=== PATIENT | female | born 1970 | race Caucasian/White ===

== ENCOUNTER 2017-01-21 20:21 | Emergency (ER) | payer MEDICARE, MEDICAID ==
[2017-01-21] MEDS ORDERED: KETOROLAC TROMETHAMINE 60 MG/2 ML VIAL IM ONE ×2 (21:09→21:32)
[2017-01-21] MEDS ORDERED: ASPIRIN 81 MG TAB.CHEW PO ONE (21:11)
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
[2017-01-21] MEDS ORDERED: ASPIRIN 81 MG TAB.CHEW ONE (21:32)
[2017-01-21 21:42] LABS: Hematocrit 33.4 % (37.0-47.0); Hemoglobin 11.2 gm/dL (12.5-16.0); Mean Cell Volume 81.9 fl (78-100); Mean Corpuscular Hemoglobin 27.5 pg (27-31); Mean Corpuscular Hgb Conc 33.5 g/dl (32-36); Mean Platelet Volume 10.8 fl (6.0-9.5); Neutrophil # 7.6 K/mm3 (1.3-6.0); Neutrophil % 68.2 % (42-75.0); Platelet Count 171 K/mm3 (150-450); Red Blood Count 4.08 M/mm3 (4.2-5.4); Red Cell Distribution Width 13.2 % (11.5-14.0); White Blood Count 11.2 K/mm3 (4.0-10.5)
[2017-01-21 21:48] LABS: Prothrombin Time (Patient) 9.8 Seconds (9.0-11.0)
[2017-01-21 21:51] LABS: INR 0.98 INR (0.90-1.10); Partial Thrombolplastin Time 27.3 Seconds (24-32)
[2017-01-21 21:57] LABS: ALT 21 U/L (19-67); AST 14 U/L (0-48); Albumin * 3.5 gm/dl (3.4-5.0); Alkaline Phosphatase * 104 U/L (50-170); Anion Gap 9.3 mmol/L (6.8-13.8); BUN/Creatinine Ratio 18.2 (9.0-21.6); Bilirubin, Total 0.3 mg/dL (0.0-1.1); Blood Urea Nitrogen 12 mg/dL (3-23); Ca. Corrected For Albumin 9.1 mg/dL (8.4-10.2); Chloride 102 mmol/L (97-106); Glucose * 221 mg/dL (70-110); Potassium 3.3 mmol/L (3.4-4.6); Sodium 138 mmol/L (132-142); Total Protein 7.3 gm/dL (6.2-8.2); Troponin I Less than 0.017 ng/ml (0.00-0.10)
[2017-01-21] MEDS ORDERED: LEVOFLOXACIN 500 MG TABLET PO ONE (22:12)
[2017-01-21] MEDS ORDERED: BENZONATATE 100 MG CAPSULE PO ONE ×2 (22:13→22:17)
[2017-01-21] MEDS ORDERED: LEVOFLOXACIN 500 MG TABLET ONE (22:17)
[2017-01-22 00:54] VITALS: BP 141/66
== END 2017-01-21 22:25 | disposition home or self-care (01) ==
LOC: ER 20:21
DX: J40 Bronchitis, not specified as acute or chronic (principal); E11.9 Type 2 diabetes mellitus without complications; Z79.4 Long term (current) use of insulin; Z87.442 Personal history of urinary calculi; E78.5 Hyperlipidemia, unspecified; F17.200 Nicotine dependence, unspecified, uncomplicated; R07.9 Chest pain, unspecified
CPT/HCPCS: 36415; 71020; 71046; 80053; 84484; 85025; 85610; 85730; 87081; 87400; 87430; 87449; 93005; 96372; 99284

== ENCOUNTER 2017-01-22 00:40 | Emergency (ER) | payer MEDICAID ==
[2017-01-22 00:48] VITALS: BP 154/91
[2017-01-22] MEDS ORDERED: ORPHENADRINE CITRATE 30 MG/ML VIAL IM ONE (01:12)
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
[2017-01-22] MEDS ORDERED: ORPHENADRINE CITRATE 30 MG/ML VIAL ONE (01:18)
== END 2017-01-22 01:22 | disposition home or self-care (01) ==
LOC: ER 00:40
DX: M62.830 Muscle spasm of back (principal); E11.9 Type 2 diabetes mellitus without complications; Z79.01 Long term (current) use of anticoagulants; E78.2 Mixed hyperlipidemia; F17.200 Nicotine dependence, unspecified, uncomplicated